=== PATIENT | male | born 1995 | race Caucasian/White ===

== ENCOUNTER → 2018-04-05 | Outpatient (CLI) | payer MEDICAID | END | disposition home or self-care (01) | LOC: RAD 10:42 | PROVIDERS: ATTEND Family Medicine | DX: R10.84 Generalized abdominal pain (principal) | CPT/HCPCS: 74176 ==

== ENCOUNTER 2018-09-25 16:44 | Emergency (ER) | payer MEDICAID ==
[~2018-09-25] VITALS: Ht 172.7 cm; Wt 167.7 kg
[2018-09-25 16:46] VITALS: BP 159/91
--- NOTE | 2018-09-25 17:16 | NUR ---
SURFACE BOSS: PT REPORTS ULQ ABD PAIN X 1 WEEK W/ CONSTIPATION & A BM TODAY W/ "PINK MUCOUSY STOOL" & INCREASED URINARY FREQUENCY. PT HAS NOT TRIED ANY OTC TO RESOLVE CONSTIPATION.
--- NOTE | 2018-09-25 17:19 | NUR ---
REPORT FROM LEONARDO WALLACE. FIRST CONTACT WITH PT. PT SITTING UP IN [facility], NAD NOTED. BP/SPO2 MONITORING IN PLACE. PT AMBULATED STEADILY TO BATHROOM TO PROVIDE UA.
[2018-09-25 17:29] LABS: MEAN CORPUSCULAR HEMOGLOBIN 29.3 pg (27.5-34.5); MEAN CORPUSCULAR HGB CONC 34.3 g/dL (33.2-36.2); MEAN CORPUSCULAR VOLUME 85.5 fL (81-97); MEAN PLATELET VOLUME 8.1 fL (7.4-10.4); PLATELET COUNT 206 x10^3/uL (130-400); RED BLOOD COUNT 5.38 x10^6/uL (4.38-5.82); RED CELL DISTRIBUTION WIDTH 13.6 % (9.4-14.8)
[2018-09-25] MEDS ORDERED: SODIUM CHLORIDE FLUSH 10ML SYR IVF ONE (17:30)
--- NOTE | 2018-09-25 17:30 | NUR ---
UA COLLECTED AND SENT TO LAB
[2018-09-25 17:38] LABS: ALANINE AMINOTRANSFERASE 126 U/L (12-78); ALBUMIN 3.2 g/dL (3.4-5.0); ANION GAP 7 mmol/L (5-15); CALCIUM 8.5 mg/dL (8.5-10.1); CHLORIDE 107 mmol/L (98-107); CREATININE 0.71 mg/dL (0.7-1.3)
[2018-09-25 17:40] LABS: ALKALINE PHOSPHATASE 73 U/L (45-117); BILIRUBIN,TOTAL 0.9 mg/dL (0.2-1.0); TOTAL PROTEIN 8.1 g/dL (6.4-8.2)
[2018-09-25 17:52] LABS: MICROSCOPIC NOT IND
[2018-09-25 17:56] LABS: CULTURE INDICATED? NO
[2018-09-25] MEDS ORDERED: OMNIPAQUE 350 MG/ML, 100ML BOTTLE ONE (18:00)
[2018-09-25 18:08] LABS: MD YES
[2018-09-25 18:12] LABS: BAND#(MANUAL) 0.28 x10^3/uL; BANDS%(MANUAL) 3 % (0-7); LYMPH#(MANUAL) 4.28 x10^3/uL (1-3.4); LYMPHS% (MANUAL) 46 % (22-44); MONOS#(MANUAL) 1.86 x10^3/uL (0.3-2.7); MONOS% (MANUAL) 20 % (2-9); REACTIVE LYMPHS # (MANUAL) 0.37 x10^3/uL (0-0); REACTIVE LYMPHS % (MANUAL) 4 % (0-0); SEG#(MANUAL) 2.51 x10^3/uL (1.8-6.8); SEGS% (MANUAL) 27 % (42-75)
[2018-09-25 18:14] LABS: <PLATELET ESTIMATE> ADEQUATE; <PLT MORPHOLOGY> NORMAL PLT MORPH; <RBC MORPHOLOGY> NORMAL
--- NOTE | 2018-09-25 19:08 | NUR ---
DC EDUCATION PROVIDED, PT DEMONSTRATES UNDERSTANDING. PT AMBUALTED STEADILY TO DC WITH FRIEND. FRIEND TO TRANSPORT PT HOME.
== END 2018-09-25 19:10 | disposition home or self-care (01) ==
LOC: ED 17:28
DX: K59.00 Constipation, unspecified (principal)
CPT/HCPCS: 36415; 74177; 80053; 81003; 83690; 85025; 99284; Q9967